=== PATIENT | female | born 2000 | race African-American/Black ===

== ENCOUNTER 2024-03-24 06:46 | Outpatient (REF) | payer OTHER, SELFPAY | END 2024-03-24 06:47 | disposition home or self-care (01) | LOC: HO.UMASIMG 06:46 | PROVIDERS: Visit Provider Nurse Practitioner Family | DX: Z13.89 Encounter for screening for other disorder (principal) ==

== ENCOUNTER 2024-03-29 06:44 | Outpatient (REF) | payer OTHER, SELFPAY ==
--- NOTE | ~2024-03-29 | US_ITS ---
EXAMINATION: US PELVIS CLINICAL INFORMATION: Pelvic pain and irregular bleeding, last menstrual period 03/12/2024. No prior imaging. COMPARISON: None available. TECHNIQUE: Ultrasound of the pelvis is performed using both transabdominal and transvaginal transducers along with Doppler. Transvaginal imaging is performed due to inadequate visualization transabdominally. FINDINGS: The anteverted uterus measures 7.3 x 3.0 x 4.9 cm. No significant free fluid. Uterine configuration raises the possibility of a congenital anomaly such as an arcuate uterus. Right ovary measures 3.7 x 1.5 x 1.6 cm, volume 4.6 mL and is unremarkable. Left ovary measures 3.6 x 2.3 x 2.2 cm volume 9.5 mL and is unremarkable. Endometrium appears echogenic with small heterogeneous areas and endometrial thickness of 11 mm. US/US pelvic and transvaginal IMPRESSION: 1. Uterine configuration raises the possibility of a congenital anomaly such as an arcuate uterus. 2. Endometrium appears echogenic with small heterogeneous areas and endometrial thickness of 11 mm. This study was presented today to March 30, 2024 for interpretation. Stat results provided at this time as requested by referring provider. Electronically signed by: Shari Hurtado MD 03/30/2024 07:05 AM MONICA
== END 2024-03-29 06:45 | disposition home or self-care (01) ==
LOC: HO.UMASIMG 06:44
PROVIDERS: Visit Provider Nurse Practitioner Family
DX: N92.6 Irregular menstruation, unspecified (principal); R10.2 Pelvic and perineal pain
CPT/HCPCS: 76830; 76856

== ENCOUNTER 2024-09-14 05:59 | Emergency (ER) | payer OTHER, SELFPAY ==
[2024-09-14 06:06] VITALS: BP 124/67; PULSE 57; RESP 18; TEMP 36.4; O2SAT 100; BMI 19.1
--- OUTSIDE RECORDS SUMMARY | 2024-09-14 06:56 | XMS_ITS | Encounter Summary ---
Author Organization [facility] [place] Address [address] [place] [address] Care Team Providers Care Lpn Instructor Name Role Phone Rimma Red MD Primary Care Provider [phone] Radha Stafford DNP Primary Care Provider [phone] Encounter Details Date Type Department Care Team (Late st Contact Info) Description 11/11/2019 Lab Requisition [facility] Pathology & Laboratory Medicine - [facility] [address], [place] [id number] Outr Resulting Lab, Provider Social History Tobacco Use Types Packs/Day Years Used Date Smoking Tobacco: Never Assessed Comments Unknown Sex and Gender Information Value Date Recorded Sex Assigned at Not on file Legal Sex Female 18:41 EST Gender Identity Female 02/27/2021 14:09 EST Sexual Orientation Straight 05/03/2021 12 :06 EST documented as of this encounter Plan of Treatment Not on file documented as of this encounter Procedures Procedure Name Priority Date/Time Associated Diagnosis Comments DO NOT ORDER STANDALONE - BROAD COVID TEST Today 11/11/2019 15:23 EDT COVID-19 TESTING Routine 11/11/2019 15:2 3 EDT documented in this encounter Results * DO NOT ORDER STANDALONE - BROAD COVID TEST (11/11/2019 15:23 EDT) [facility] COVID-19 rt-PCR Result NEGATIVE Negative 11/13/2019 1:27 EDT [facility] Comment: 2019-novel Coronavirus (2019-nCoV) not detected by the qRT-PCR assay. Consider testing for other respiratory viruses or re-collecting for 2019-nCoV testing. Note: Optimum timing for peak viral levels during infections caused by 2019-nCoV have not been determined. Collection of multiple specimens from the same patient may be necessary to detect the virus. Limitations Positive results are indicative of active infection with SARS-CoV-2 but do not rule out bacterial infection or co-infection with other viruses. The agent detected may not be the definite cause of disease. In addition, detection of viral RNA may not indicate the presence of infectious virus or that SARS-CoV-2 is the causative agent for clinical symptoms. Negative results do not preclude SARS-CoV-2 infection and should not be used as the sole basis for patient management decisions. Negative results must be combined with clinical observations, patient history, and epidemiological information. False negative results may also occur if amplification inhibitors are present in the specimen or if inadequate numbers of organisms are present in the specimen. Optimum specimen types and timing for peak viral levels during infections caused by SARS-CoV-2 have not been fully determined. Collection of multiple specimens (types and time points) from the same patient may be necessary to detect the virus. The test was validated for use with upper respiratory specimens obtained via nasopharyngeal or oropharyngeal swabs in VTM, UTM, M4, M5, M6, saline, and MTM media. The performance of this test has not been established for other specimens. Specimens collected using other FDA recommended Specimen Collection Materials listed in the FDA COVID-19 [employer] communication (July 14, 2019) are processed with the caveat that they were not all validated for use with this test and the result must be interpreted in this context. Furthermore, a false negative results may occur if a specimen is improperly collected, transported or handled. If the virus mutates in the RT-PCR target region, SARS-CoV-2 may not be detected or may be detected less predictably. Inhibitors or other types of interference may produce a false negative result. An interference study evaluating the effect of common cold medications was not performed. This test is not FDA-cleared but its performance characteristics were established by our CLIA-certified, CAP-accredited, high complexity laboratory in accordance with CLIA regulations, [employer] of [place] [employer] (CAP) guidelines (Jul 07, 2019), and FDA guidance (Jun 18, 2019). This test is only for use under the Food and Drug Administration's Emergency Use Authorization. Swab ENTIRE NASOPHARYNX / Unknown 11/11/2019 15:23 EDT 11/11/2019 21:23 EDT us Provider Outr Resulting Lab MICROBIOLOGY - GENER AL ORDERABLES Final Result [facility] [place], [place] * COVID-19 TESTING (11/11/2019 15:23 EDT) COVID-19 rt-PCR Result NEGATIVE Negative 11/13/2019 2:33 EDT [facility] Comment: 2019-novel Coronavirus (2019-nCoV) not detected by the qRT-PCR assay. Consider testing for other respiratory viruses or re-collecting for 2019-nCoV testing. Note: Optimum timing for peak viral levels during infections caused by 2019-nCoV have not been determined. Collection of multiple specimens from the same patient may be necessary to detect the virus. Limitations Positive results are indicative of active infection with SARS-CoV-2 but do not rule out bacterial infection or co-infection with other viruses. The agent detected may not be the definite cause of disease. In addition, detection of viral RNA may not indicate the presence of infectious virus or that SARS-CoV-2 is the causative agent for clinical symptoms. Negative results do not preclude SARS-CoV-2 infection and should not be used as the sole basis for patient management decisions. Negative results must be combined with clinical observations, patient history, and epidemiological information. False negative results may also occur if amplification inhibitors are present in the specimen or if inadequate numbers of organisms are present in the specimen. Optimum specimen types and timing for peak viral levels during infections caused by SARS-CoV-2 have not been fully determined. Collection of multiple specimens (types and time points) from the same patient may be necessary to detect the virus. The test was validated for use with upper respiratory specimens obtained via nasopharyngeal or oropharyngeal swabs in VTM, UTM, M4, M5, M6, saline, and MTM media. The performance of this test has not been established for other specimens. Specimens collected using other FDA recommended Specimen Collection Materials listed in the FDA COVID-19 [employer] communication (July 14, 2019) are processed with the caveat that they were not all validated for use with this test and the result must be interpreted in this context. Furthermore, a false negative results may occur if a specimen is improperly collected, transported or handled. If the virus mutates in the RT-PCR target region, SARS-CoV-2 may not be detected or may be detected less predictably. Inhibitors or other types of interference may produce a false negative result. An interference study evaluating the effect of common cold medications was not performed. This test is not FDA-cleared but its performance characteristics were established by our CLIA-certified, CAP-accredited, high complexity laboratory in accordance with CLIA regulations, [employer] of [place] [employer] (CAP) guidelines (Jul 07, 2019), and FDA guidance (Jun 18, 2019). This test is only for use under the Food and Drug Administration's Emergency Use Authorization. Performing Lab [facility] 11/13/2019 2:33 EDT [facility] Swab 11/11/2019 15:2 3 EDT 11/11/2019 21:23 EDT us Provider Outr Resulting Lab MICROBIOLOGY - GENER AL ORDERABLES Final Result [facility] [address], [place] [id number] [place] [address] LABORAT[facility] [place], [place] documented in this encounter Visit Diagnoses Not on filedocumented in this encounter Care Teams Lpn Instructor Relationship Specialty Start Date End Date Rimma Red MD PCP - General 11/20/16 02/26/21 Radha Stafford DNP PCP - General Family Medicine - Primary Care 02/27/21 documented as of this encounter
== END 2024-09-14 08:02 | disposition left against medical advice (07) ==
PROVIDERS: Emergency Provider Emergency Medicine
DX: M54.2 Cervicalgia (principal); Z53.21 Procedure and treatment not carried out due to patient leaving prior to being seen by health care provider
CPT/HCPCS: 99281

== ENCOUNTER 2024-09-14 22:26 | Emergency (ER) | payer OTHER, SELFPAY ==
[2024-09-14 22:37] VITALS: BP 102/78; PULSE 76; RESP 16; TEMP 36.3; O2SAT 98; BMI 19.0
[2024-09-15] VITALS: BP 124/65; PULSE 66; RESP 16; TEMP 36.3; O2SAT 100
--- NOTE | 2024-09-15 00:11 | PC.NURSE ---
PT comes from waiting room with complaints of persistent neck pain since January. PT is a/ox4, calm/cooperative and in no acute distress. PT reports that she had no injury to her neck shoulder area, but believes that she just turned her neck the wrong way. PT is a student, sits at a desk often. Has been going to Physical Therapy with no improvement, and recently woke up out of herself d/t pain which is what caused her to been seen in the ED. PT is being seen by Sports med provider at [facility] and reports she has not been prescribe pain relief from providers. Boyfriend at bedside. Questioning the length of time to see a provider inform pt and boyfriend that tw would not be able to provide a time frame, unfortunately but would discuss with provider
--- NOTE | 2024-09-15 00:58 | ED_ITS ---
HPI - General Adult General Chief complaint: Neck Pain/Injury Stated complaint: right shoulder & neck pain Time Seen by Provider: 09/15/24 00:38 Source: patient Mode of arrival: ambulatory Limitations: no limitations History of Present Illness ED Provider: Dr. Gi Amaya HPI narrative: Patient comes to the emergency room complaining of chronic bilateral neck pain and suprascapular pain. Patient states that she had an injury in January of 2024. Patient states that she has tried physical therapy, patient states that she has an MRI pending. Patient states that she has acute on chronic pain. Denies any recent injuries. Denies any numbness or tingling of upper or lower extremities. Denies any loss of strength. Related Data Previous Rx's ?Medication ?Instructions ?Recorded cyclobenzaprine 10 mg tablet 10 mg PO BID PRN muscle spasm #10 09/15/24 tabs ketorolac 10 mg tablet 10 mg PO BID #10 tabs 09/15/24 Allergies Allergy/AdvReac Type Severity Reaction Status Date / Time No Known Allergies Allergy Verified 09/14/24 22:40 Review of Systems Review of Systems: Constitutional : No Weight loss, No Fever, No Chills, No Night Sweats, No Fatigue, No Malaise ENT/Mouth : No Hearing loss, No Ear Pain, No Nasal Congestion, No Sinus Pain, No Hoarseness, No sore throat, No Rhinorrhea, No Swallowing Difficulty Eyes: No Eye Pain, No Swelling, No Redness, No Foreign Body, No Discharge, No Vision Changes Cardiovascular : No Chest Pain, No SOB, No Dyspnea on Exertion, No Orthopnea, No Edema, No Palpitations Respiratory : No Cough, No Sputum, No Wheezing, No Smoke Exposure, No Dyspnea Gastrointestinal : No Nausea, No Vomiting, No Diarrhea, No Constipation, No abdominal Pain, No Hematochezia, No Melena Genitourinary : no irregular bleeding, No Dysuria, No Urinary Frequency, No Hematuria, No Urinary Incontinence, No Urgency, No Flank Pain, No Urinary Flow Changes, No Hesitancy Musculoskeletal : Complaining of bilateral neck pain, suprascapular pain for several months, No Myalgias, No Joint Swelling Skin : No Skin Lesions, No rash Neuro : No Weakness, No Numbness, No Paresthesias, No Loss of Consciousness, No Dizziness, No Headache Psych : No Anxiety/Panic, No Depression, No SI/HI/AH/VH, No Social Issues, Heme/Lymph: No Bruising, No Bleeding,No Lymphadenopathy Endocrine : No Polyuria, No Polydipsia, No Temperature Intolerance [facility] Social History Social History Advance Directives: No Advance Directives Information Provided: Yes Do you have a plan to hurt others: No Plan Physical Exam ED Vital Signs: Vital Signs - 24 hr 09/14/24 22:37 09/15/24 00:00 Temperature 97.3 F 97.3 F Pulse Rate 76 66 Respiratory Rate 16 16 Blood Pressure 102/78 124/65 Pulse Oximetry 98 100 Oxygen Delivery Method Room Air Room Air BMI result Body Mass Index 19.0 Const Other: Appearance: Alert. Oriented X3. No acute distress. Eyes: Pupils equal, round and reactive to light. ENT: Pharynx normal. Neck: Normal inspection. Neck supple. No lymph nodes noted. No crepitus, patient able to flex and extend the neck with normal range of motion, no rigidity, no palpable step-offs CVS: Normal heart rate and rhythm. Pulses normal. Normal S1 and S2 Respiratory: No respiratory distress. Breath sounds normal. No Wheezing. No rales Abdomen: Soft and nontender. No rigidity. No distention. Back: Pain to palpation bilaterally over both sides of the neck, bilateral suprascapular area and along the trapezius muscle distribution bilaterally Skin: Skin warm and dry. Normal skin color. Normal skin turgor. Extremities: No lower extremity edema. No Lacerations. No Rash Neuro: Oriented X 3. No motor deficit. No sensory deficit. Moving all extremities. No slurred speech. CN 2 through 12 grossly intact Psych: calm, cooperative, normal affect Medical Decision Making Medical Decision Making MDM Narrative: Patient physical exam, patient has musculoskeletal pain, along the trapezius muscle bilaterally. This is chronic for the patient, 7 months now. Patient has already tried physical therapy and has an MRI pending I offered to the patient IM medication and cyclobenzaprine. I discussed with the patient that this will not cure her but it will help with the muscular discomfort. Patient instructed to follow-up with the primary care physician. Discharge Plan Discharge Clinical Impression: Chronic musculoskeletal pain Patient Disposition: Home, Self-Care Instructions: Arthralgia (ED), Neck Pain (ED) Additional Instructions: Please follow-up with your primary care physician tomorrow. If you have any worsening or new symptoms, please return to the emergency room or call 911 Prescriptions: New ketorolac 10 mg tablet 10 mg PO BID Qty: 10 0RF Rx Instructions: Do not use this medications with ibuprofen, Aleve, any NSAID, Tylenol is okay cyclobenzaprine 10 mg tablet 10 mg PO BID PRN (Reason: muscle spasm) Qty: 10 0RF Print Language: Turkmen
[2024-09-15] MEDS: Cyclobenzaprine HCl 10 MG TABLET PO (01:17)
[2024-09-15] MEDS: Ketorolac Tromethamine 60 MG/2 ML VIAL IM (01:17)
[2024-09-15 01:20] VITALS: BP 118/63; PULSE 59; RESP 18; TEMP 36.8; O2SAT 100
== END 2024-09-15 01:26 | disposition home or self-care (01) ==
PROVIDERS: Emergency Provider Emergency Medicine
DX: G89.29 Other chronic pain (principal); M79.18 Myalgia, other site; M54.2 Cervicalgia
CPT/HCPCS: 96372; 99284; J1885

== ENCOUNTER 2024-09-20 19:18 | Outpatient (REF) | payer OTHER, SELFPAY ==
--- NOTE | ~2024-09-20 | MR_ITS ---
CLINICAL HISTORY: CERVICALGIA MR cervical spine without gadolinium Comparison: None Straightening and mild reversal of the cervical lordosis on degenerative basis. Mild multilevel spondylosis with degenerative disc desiccation, disc height loss, posterior disc osteophyte complex, and facet arthropathy. Most notably at C3-C4 causing moderate spinal canal narrowing and ventral cord remodeling. Moderate right and mild left neural foraminal narrowing at this level. Remainder of the levels are without significant spinal canal or neural foraminal narrowing. No acute fractures or pathologic bone lesions. No acute findings on limited view of the intracranial contents. Soft tissues of the neck are normal. Cervical cord normal size and signal. IMPRESSION: No acute findings. Moderate spondylosis at C3-C4 causing moderate spinal canal narrowing and ventral cord remodeling. Moderate right neural foraminal narrowing at this level causing abutment of the exiting right C4 nerve root without evidence of impingement. No abnormal cord signal or evidence of cord compression. This document has been electronically signed by: Alan Smith MD on 09/20/2024 20:28:31
--- OUTSIDE RECORDS SUMMARY | 2024-09-20 19:26 | XMS_ITS | Encounter Summary ---
Author Organization [facility] Address [address] [place] [address] Care Team Providers Care Acrylic Fabricator Name Role Phone Rimma Red MD Primary Care Provider [phone] Radha Stafford DNP Primary Care Provider [phone] Encounter Details Date Type Department Care Team (Late st Contact Info) Description 11/11/2019 Lab Requisition [facility] Pathology & Laboratory Medicine - [facility] [address], [place] [id number] Outr Resulting Lab, Provider Social History Tobacco [...] - BROAD COVID TEST (11/11/2019 15:23 EDT) [facility] COVID-19 rt-PCR Result NEGATIVE Negative 11/13/2019 1:27 EDT [facility] Comment: 2019-novel Coronavirus (2019-nCoV) not detected [...] in accordance with CLIA regulations, [employer] [place] [employer] (CAP) guidelines (Jul 07, 2019), and FDA guidance (Jun 18, 2019). This test is only for use under the Food and Drug Administration's Emergency Use Authorization. Swab ENTIRE NASOPHARYNX / Unknown 11/11/2019 15:23 EDT 11/11/2019 21:23 EDT us Provider Outr Resulting Lab MICROBIOLOGY - GENER AL ORDERABLES Final Result [facility] [place], [place] * COVID-19 TESTING (11/11/2019 15:23 EDT) COVID-19 rt-PCR Result NEGATIVE Negative 11/13/2019 2:33 EDT [facility] Comment: 2019-novel Coronavirus (2019-nCoV) not detected [...] in accordance with CLIA regulations, [employer] [place] [employer] (CAP) guidelines (Jul 07, 2019), and FDA guidance (Jun 18, 2019). This test is only for use under the Food and Drug Administration's Emergency Use Authorization. Performing Lab [facility] 11/13/2019 2:33 EDT [facility] Swab 11/11/2019 15:2 3 EDT 11/11/2019 21:23 EDT us Provider Outr Resulting Lab MICROBIOLOGY - GENER AL ORDERABLES Final Result [facility] [address] [place] [address] [facility] [place], [place] documented in this encounter Visit Diagnoses Not on filedocumented in this encounter Care Teams Acrylic Fabricator Relationship Specialty Start Date End Date Rimma Red MD PCP - General 11/20/16 02/26/21 Radha Stafford DNP [address] [place] [phone] PCP - General Family Medicine - Primary Care 02/27/21 documented as of this encounter
== END 2024-09-20 19:19 | disposition home or self-care (01) ==
LOC: HO.MRI 19:18
PROVIDERS: Visit Provider Student in an Organized Health Care Education/Training Program
DX: M54.2 Cervicalgia (principal)
CPT/HCPCS: 72141

== ENCOUNTER → 2024-09-20 19:29 | Outpatient (BNV) | payer OTHER, SELFPAY | PROVIDERS: Visit Provider Student in an Organized Health Care Education/Training Program | DX: M47.812 Spondylosis without myelopathy or radiculopathy, cervical region (principal) | CPT/HCPCS: 72141 ==